=== PATIENT | male | born 1970 | race African-American/Black ===

== ENCOUNTER 2018-04-17 13:51 | Observation (INO) | payer SELFPAY ==
[2018-04-17] VITALS (7 sets, daily range): BP systolic 156–173; BP diastolic 88–102; PULSE 60–77; RESP 16–20; TEMP 97.9–98.4; O2SAT 94–97
[~2018-04-17] VITALS: Ht 167.6 cm; Wt 102.0 kg
[~2018-04-17 13:51] MED LIST: LORTA5 PO
[2018-04-17 14:29] LABS: AUTOMATED NEUTROPHIL # 2.6 TH/MM3 (1.8-7.7); BASOPHIL # 0.1 TH/MM3 (0-0.2); BASOPHIL % 1.1 % (0.0-2.0); EOSINOPHIL # 0.2 TH/MM3 (0-0.4); EOSINOPHIL % 3.5 % (0.0-4.0); HEMATOCRIT 44.9 % (39.0-51.0); HEMOGLOBIN 15.4 GM/DL (13.0-17.0); LYMPH % 44.4 % (9.0-44.0); LYMPHOCYTE # 2.7 TH/MM3 (1.0-4.8); MEAN CELL VOLUME 91.3 FL (80.0-100.0); MEAN CORPUSCULAR HEMOGLOBIN 31.4 PG (27.0-34.0); MEAN CORPUSCULAR HGB CONC 34.4 % (32.0-36.0); MEAN PLATELET VOLUME 7.7 FL (7.0-11.0); MONO % 8.9 % (0.0-8.0); MONOCYTE # 0.5 TH/MM3 (0-0.9); NEUT % 42.1 % (16.0-70.0); PLATELET COUNT 325 TH/MM3 (150-450); RED BLOOD COUNT 4.92 MIL/MM3 (4.50-5.90); RED CELL DISTRIBUTION WIDTH 12.4 % (11.6-17.2); WHITE BLOOD COUNT 6.1 TH/MM3 (4.0-11.0)
[2018-04-17] MEDS ORDERED: SODIUM CHLORIDE 0.9% FLUSH 10 ML FLUSH IVF PRN (14:30)
--- NOTE | 2018-04-17 14:39 | PD ---
HPI Chief Complaint: Hypertension Time Seen by Provider: 14:32 Travel History International Travel<30 days: No Contact w/Intl Traveler<30days: No Traveled to known affect area: No History of Present Illness HPI Patient presents to the emergency department complaint of high blood pressure. States that he does not take her blood pressure medicine has no PCP, but checked his blood pressure at home because he felt lightheaded. Denies chest pain, fever, chills, vision change, shortness of breath, nausea, vomiting, abdominal pain, hematuria, back pain, but reports intermittent frontal headache. PFSH Past Medical History Cancer: No Diminished Hearing: No Endocrine: No Gastrointestinal Disorders: Yes (umbilical hernia) Genitourinary: No Hypertension: Yes Immune Disorder: No Musculoskeletal: No Neurologic: No Psychiatric: No Reproductive: No Respiratory: No Immunizations Current: Yes Tetanus Vaccination: > 5 Years Influenza Vaccination: No Past Surgical History Surgical History: No Previous Surgery Social History Alcohol Use: Yes (4 pack a week) Tobacco Use: No Substance Use: No Allergies-Medications (Allergen,Severity, Reaction): Coded Allergies: No Known Allergies (Verified Adverse Reaction, Unknown, 04/17/18) Reported Meds & Prescriptions Reported Meds & Active Scripts Active No Active Prescriptions or Reported Medications Review of Systems Except as stated in HPI: all other systems reviewed are Neg Physical Exam Narrative GENERAL: No acute distress. SKIN: Focused skin assessment warm/dry. HEAD: Atraumatic. Normocephalic. EYES: Pupils equal and round. No scleral icterus. No injection or drainage. ENT: No nasal bleeding or discharge. Mucous membranes pink and moist. NECK: Trachea midline. No JVD. CARDIOVASCULAR: Regular rate and rhythm. No murmur appreciated. RESPIRATORY: No accessory muscle use. Clear to auscultation. Breath sounds equal bilaterally. GASTROINTESTINAL: Abdomen soft, non-tender, nondistended. Hepatic and splenic margins not palpable. MUSCULOSKELETAL: No obvious deformities. No clubbing. No cyanosis. No edema. NEUROLOGICAL: Awake and alert. No obvious cranial nerve deficits. Motor grossly within normal limits. Normal speech. PSYCHIATRIC: Appropriate mood and affect; insight and judgment normal. Data Data Last Documented VS Vital Signs Date Time Temp Pulse Resp B/P (MAP) Pulse Ox O2 Delivery O2 Flow Rate FiO2 04/17/18 15:13 67 18 156/99 (118) 97 Room Air 04/17/18 13:54 98.4 Orders Orders Electrocardiogram (04/17/18 14:18) Complete Blood Count With Diff (04/17/18 14:18) Comprehensive Metabolic Panel (04/17/18 14:18) Ckmb (Isoenzyme) Profile (04/17/18 14:18) Troponin I (04/17/18 14:18) Act Partial Throm Time (Ptt) (04/17/18 14:18) Prothrombin Time / Inr (Pt) (04/17/18 14:18) Urinalysis - C+S If Indicated (04/17/18 14:18) Chest, Single Ap (04/17/18 14:18) Ct Brain W/O Iv Contrast(Rout) (04/17/18 14:18) Ecg Monitoring (04/17/18:18) Iv Access Insert/Monitor (04/17/18 14:18) Oximetry (04/17/18 14:18) Sodium Chloride 0.9% Flush (Ns Flush) (04/17/18 14:30) CKMB (04/17/18 14:10) CKMB% (04/17/18 14:10) Aspirin (Aspirin) (04/17/18 15:30) Amlodipine (Norvasc) (04/17/18 15:45) Admit Order (Ed Use Only) (04/17/18 15:46) Labs Laboratory Tests Test 04/17/18 14:10 04/17/18 15:10 White Blood Count 6.1 TH/MM3 Red Blood Count 4.92 MIL/MM3 Hemoglobin 15.4 GM/DL Hematocrit 44.9 % Mean Corpuscular Volume 91.3 FL Mean Corpuscular Hemoglobin 31.4 PG Mean Corpuscular Hemoglobin Concent 34.4 % Red Cell Distribution Width 12.4 % Platelet Count 325 TH/MM3 Mean Platelet Volume 7.7 FL Neutrophils (%) (Auto) 42.1 % Lymphocytes (%) (Auto) 44.4 % Monocytes (%) (Auto) 8.9 % Eosinophils (%) (Auto) 3.5 % Basophils (%) (Auto) 1.1 % Neutrophils # (Auto) 2.6 TH/MM3 Lymphocytes # (Auto) 2.7 TH/MM3 Monocytes # (Auto) 0.5 TH/MM3 Eosinophils # (Auto) 0.2 TH/MM3 Basophils # (Auto) 0.1 TH/MM3 CBC Comment DIFF FINAL Differential Comment Prothrombin Time 10.5 SEC Prothromb Time International Ratio 1.0 RATIO Activated Partial Thromboplast Time 27.4 SEC Blood Urea Nitrogen 8 MG/DL Creatinine 0.93 MG/DL Random Glucose 93 MG/DL Total Protein 8.3 GM/DL Albumin 3.5 GM/DL Calcium Level 8.6 MG/DL Alkaline Phosphatase 91 U/L Aspartate Amino Transf (AST/SGOT) 22 U/L Alanine Aminotransferase (ALT/SGPT) 28 U/L Total Bilirubin 0.9 MG/DL Sodium Level 139 MEQ/L Potassium Level 4.0 MEQ/L Chloride Level 106 MEQ/L Carbon Dioxide Level 26.5 MEQ/L Anion Gap 7 MEQ/L Estimat Glomerular Filtration Rate 105 ML/MIN Total Creatine Kinase 311 U/L Creatine Kinase MB 3.7 NG/ML Creatine Kinase MB % 1.2 % Troponin I LESS THAN 0.02 NG/ML Urine Collection Type CLEAN CATCH Urine Color YELLOW Urine Turbidity CLEAR Urine pH 5.0 Urine Specific [place] 1.020 Urine Protein NEG mg/dL Urine Glucose (UA) NEG mg/dL Urine Ketones NEG mg/dL Urine Occult Blood NEG Urine Nitrite NEG Urine Bilirubin NEG Urine Urobilinogen 0.2 MG/DL Urine Leukocyte Esterase NEG Urine RBC 0-3 /hpf Urine Squamous Epithelial Cells 0-5 /hpf Microscopic Urinalysis Comment CULT NOT INDICATED MDM Medical Decision Making Medical Screen Exam Complete: Yes Emergency Medical Condition: Yes Interpretation(s) ECG: Sinus rhythm, rate 65, QTC 409, ST depression in leads III and aVF (no old for comparison), initial straightening of the ST segment in lead I, aVL, V2 through V4 Labs: Elevated CK,CKMB, Last Impressions Head CT 04/17/181417 Signed Impressions: CONCLUSION: 1. No acute intracranial abnormalities. Mucosal thickening in the ethmoid air cells and left frontal sinus. Chest X-Ray 04/17/181417 Signed Impressions: CONCLUSION: No acute findings. Differential Diagnosis Hypertensive emergency/urgency, CVA, ICH, HTN Narrative Course Patient presents emergency department complaining of hypertension. He was placed on a diesel maintenance technician, IV access obtained, and EKG/chest x-ray/head CT ordered. 1527: Patient without chest pain. Give aspirin 325 mg p.o. BP 156/99 1548: admitted, given amlodipine 10mg po per hsopitalsit. Physician Communication Physician Communication Dr Cruz: Admit for observation, amlodipine 10mg po, admit for serial ecg and enzymes Diagnosis Primary Impression: Hypertensive urgency Admitting Information Admitting Physician Requests: Observation Scripts No Active Prescriptions or Reported Meds Condition: Stable Tricia Fitch MD Apr 17, 2018 14:39
[2018-04-17 14:44] LABS: CHLORIDE 106 MEQ/L (98-107); SODIUM (NA) 139 MEQ/L (136-145)
[2018-04-17 14:47] LABS: CALCIUM 8.6 MG/DL (8.5-10.1)
[2018-04-17 14:48] LABS: ALBUMIN 3.5 GM/DL (3.4-5.0); BICARBONATE 26.5 MEQ/L (21.0-32.0); BLOOD UREA NITROGEN 8 MG/DL (7-18); GLUCOSE,RANDOM 93 MG/DL (74-106)
[2018-04-17 14:51] LABS: ALT (GPT) 28 U/L (12-78); AST (GOT) 22 U/L (15-37); CREATININE 0.93 MG/DL (0.60-1.30); GLOMERULAR FILTRATION RATE 105 ML/MIN (>89)
[2018-04-17 14:52] LABS: TOTAL BILIRUBIN ADULT 0.9 MG/DL (0.2-1.0)
[2018-04-17 14:53] LABS: TOTAL PROTEIN 8.3 GM/DL (6.4-8.2)
[2018-04-17 14:54] LABS: ALKALINE PHOSPHATASE 91 U/L (45-117)
--- NOTE | 2018-04-17 14:54 | RADRPT ---
EXAM DATE: 04/17/2018 2:44 PM EDT AGE/SEX: 47 years / Male INDICATIONS: Chest discomfort. Palpitations. CLINICAL DATA: This is the patient's initial encounter. Patient reports that signs and symptoms have been present for 1 day and indicates a pain score of 4/10. MEDICAL/SURGICAL HISTORY: None. None. COMPARISON: No prior exams available for comparison. FINDINGS: A single AP view of the chest demonstrates the lungs to be symmetrically aerated without evidence of mass, infiltrate or effusion. The cardiomediastinal contours are unremarkable. Osseous structures a re intact. CONCLUSION: No acute findings. Electronically signed by: Adebayo Weinstein MD 04/17/2018 2:53 PM EDT
[2018-04-17 14:56] LABS: TROPONIN I LESS THAN 0.02 NG/ML (0.02-0.05)
--- NOTE | 2018-04-17 14:59 | RADRPT ---
EXAM DATE: 04/17/2018 2:55 PM EDT AGE/SEX: 47 years / Male INDICATIONS: Elevated blood pressure and headache. CLINICAL DATA: This is the patient's initial encounter. Patient reports that signs and symptoms have been present for 2 days and indicates a pain score of 1/10. MEDICAL/SURGICAL HISTORY: Hypertension. None. RADIATION DOSE: 55.77 CTDI (mGy) COMPARISON: No prior exams available for comparison. TECHNIQUE: CT of the head without contrast. Using automated exposure control and adjustment of the mA and/or kV according to patient size, radiation dose was kept as low as reasonably achievable to ob tain optimal diagnostic quality images. FINDINGS: Cerebrum: The ventricles are normal for age. No evidence of midline shift, mass lesion, hemorrhage or acute infarction. No extraaxial fluid collections are seen. Posterior Fossa: The cerebellum and brainstem are intact. The 4th ventricle is midline. The cerebe llopontine angle is unremarkable. Extracranial: The visualized portion of the orbits is intact. Mucosal thickening in the ethmoids and left frontal sinus. Skull: The calvaria is intact. No evidence of skull fracture. CONCLUSION: 1. No acute intracranial abnormalities. Mucosal thickening in the ethmoid air cells and left frontal sinus. Electronically signed by: Adebayo Weinstein MD 04/17/2018 2:58 PM EDT
[2018-04-17 15:14] LABS: BILIRUBIN, URINE NEG (NEG); BLOOD, URINE NEG (NEG); GLUCOSE,URINE NEG (NEG); KETONE, URINE NEG (NEG); NITRITE,URINE NEG (NEG); URINE COLOR YELLOW (YELLW/STRAW); URINE LEUKOCYTE ESTERASE NEG (NEG)
[2018-04-17 15:20] LABS: PROTHROMBIN TIME - PATIENT 10.5 SEC (9.8-11.6)
[2018-04-17 15:22] LABS: RBC, URINE 0-3 /hpf (0-3); SQUAMOUS EPITHELIAL CELL URINE 0-5 /hpf (0-5)
[2018-04-17] MEDS ORDERED: ASPIRIN 325 MG TAB PO ONE (15:30)
[2018-04-17] MEDS ORDERED: METOCLOPRAMIDE HCL 10 MG/2 ML VIAL IV PUSH PRN (15:45)
[2018-04-17] MEDS ORDERED: SODIUM CHLORIDE 0.9% FLUSH 10 ML FLUSH IV FLUSH PRN (15:45)
[2018-04-17] MEDS ORDERED: SENNOSIDES 8.6 MG TAB PO PRN (15:45)
[2018-04-17] MEDS ORDERED: BISACODYL 10 MG SUPP RECTAL PRN (15:45)
[2018-04-17] MEDS ORDERED: MAGNESIUM HYDROXIDE SUSP 30 ML CUP PO PRN (15:45)
[2018-04-17] MEDS ORDERED: LACTULOSE SYRUP 20 GM/30 ML CUP PO PRN (15:45)
[2018-04-17] MEDS ORDERED: NALOXONE HCL 0.4 MG/ML AMP IV PUSH PRN (15:45)
--- NOTE | 2018-04-17 17:40 | HHI.HP ---
[facility] Service [facility] Primary Care Physician No Primary Care Physician Admission Diagnosis Hypertension urgency, headache, Diagnoses: (1) Hypertensive urgency Diagnosis: Principal (2) Lightheadedness Diagnosis: Principal (3) Nausea Diagnosis: Principal (4) Elevated CPK (5) Abnormal EKG Chief Complaint: Elevated blood pressure Travel History International Travel<30 Days: No Contact w/Intl Traveler <30 Da: No Traveled to Known Affected Are: No History of Present Illness Written by Shankar Santamaria, acting as scribe for Dr. Cruz on 04/17/18 at 17: 40. 47-year-old male with no significant medical history who presented to the hospital because of elevated blood pressure, lightheadedness, nausea, headache. Patient was in normal state of health until today when he was at [employer] when he started developing some lightheadedness and nausea. When the patient got home he took his blood pressure and noticed it to be 160/80. Because of his symptoms and his elevated blood pressure he came to the emergency department for evaluation. Patient had workup done in the emergency department and found to have mildly elevated CPK, CK-MB and abnormal EKG and was recommended by the ER physician that the patient be observed in the hospital for further recommendations and management. Patient denied any actual chest pain, shortness of breath, difficulty breathing, diaphoresis. Patient never had a cardiac workup before. Patient states that he does exercise on a regular basis. He does run. He usually plays basketball but has not done that in approximately 1 month. Denies any illicit drug use. Patient does have family history of heart disease. Review of Systems Constitutional: COMPLAINS OF: Dizziness Gastrointestinal: COMPLAINS OF: Nausea Neurologic: COMPLAINS OF: Headache Except as stated in HPI: all other systems reviewed are Neg Past Family Social History Past Medical History No chronic medical illnesses Past Surgical History No previous surgery Reported Medications Reported Meds & Active Scripts Active No Active Prescriptions or Reported Medications Allergies: Coded Allergies: No Known Allergies (Verified Allergy, Unknown, 04/17/18) Family History Reviewed and significant for uncle have an heart disease, myocardial infarction. Social History Patient denies any tobacco, alcohol or illicit drug Physical Exam Vital Signs Vital Signs Date Time Temp Pulse Resp B/P (MAP) Pulse Ox O2 Delivery O2 Flow Rate FiO2 04/17/18 17:05 63 16 159/98 (118) 95 04/17/18 16:20 60 18 165/102 (123) 97 Room Air 04/17/18 15:13 67 18 156/99 (118) 97 Room Air 04/17/18 14:07 77 16 173/96 (121) 95 Room Air 04/17/18 14:07 77 16 95 Room Air 04/17/18 14:07 95 Room Air 04/17/18 13:54 98.4 77 16 171/98 (122) 95 Physical Exam GENERAL: AA male, laying in bed. alert and orientated HEENT: Head is normocephalic. Facial features are symmetric. Pupils equal round reactive to light. Extraocular muscles are intact. Conjunctivae were clear. Pharynx without any erythema edema. Tongue is midline without deviation. Buccal mucosa is moist NECK: Supple without any masses. Trachea midline no deviation. No JVD CARDIAC: Regular rhythm, regular rate. S1/S2 are heard. No murmurs. LUNGS: Clear to auscultation bilaterally. No wheeze. No use of accessory muscles on inspiration or expiration. ABDOMEN: Soft, nontender. Nondistended. Bowel sounds heard in all 4 quadrants. Negative rebound, negative guarding EXTREMITIES: No edema, pulses are equal bilaterally. NEUROLOGY: Mood and affect appear appropriate. Cranial nerves II through XII grossly intact. Muscle strength 5/5 in upper and lower extremities bilaterally. Laboratory Laboratory Tests Test 04/17/18 14:10 04/17/18 15:10 White Blood Count 6.1 Red Blood Count 4.92 Hemoglobin 15.4 Hematocrit 44.9 Mean Corpuscular Volume 91.3 Mean Corpuscular Hemoglobin 31.4 Mean Corpuscular Hemoglobin Concent 34.4 Red Cell Distribution Width 12.4 Platelet Count 325 Mean Platelet Volume 7.7 Neutrophils (%) (Auto) 42.1 Lymphocytes (%) (Auto) 44.4 Monocytes (%) (Auto) 8.9 Eosinophils (%) (Auto) 3.5 Basophils (%) (Auto) 1.1 Neutrophils # (Auto) 2.6 Lymphocytes # (Auto) 2.7 Monocytes # (Auto) 0.5 Eosinophils # (Auto) 0.2 Basophils # (Auto) 0.1 CBC Comment DIFF FINAL Differential Comment Prothrombin Time 10.5 Prothromb Time International Ratio 1.0 Activated Partial Thromboplast Time 27.4 Blood Urea Nitrogen 8 Creatinine 0.93 Random Glucose 93 Total Protein 8.3 Albumin 3.5 Calcium Level 8.6 Alkaline Phosphatase 91 Aspartate Amino Transf (AST/SGOT) 22 Alanine Aminotransferase (ALT/SGPT) 28 Total Bilirubin 0.9 Sodium Level 139 Potassium Level 4.0 Chloride Level 106 Carbon Dioxide Level 26.5 Anion Gap 7 Estimat Glomerular Filtration Rate 105 Total Creatine Kinase 311 Creatine Kinase MB 3.7 Creatine Kinase MB % 1.2 Troponin I LESS THAN 0.02 Urine Collection Type CLEAN CATCH Urine Color YELLOW Urine Turbidity CLEAR Urine pH 5.0 Urine Specific [place] 1.020 Urine Protein NEG Urine Glucose (UA) NEG Urine Ketones NEG Urine Occult Blood NEG Urine Nitrite NEG Urine Bilirubin NEG Urine Urobilinogen 0.2 Urine Leukocyte Esterase NEG Urine RBC 0-3 Urine Squamous Epithelial Cells 0-5 Microscopic Urinalysis Comment CULT NOT INDICATED Result Diagram: 04/17/18 14104/17/181409 Imaging Last Impressions Head CT 04/17/181417 Signed Impressions: CONCLUSION: 1. No acute intracranial abnormalities. Mucosal thickening in the ethmoid air cells and left frontal sinus. Chest X-Ray 04/17/181417 Signed Impressions: CONCLUSION: No acute findings. Caprini VTE Risk Assessment Caprini VTE Risk Assessment: No/Low Risk (score <= 1) Caprini Risk Assessment Model Point Value = 1 Point Value = 2 Point Value = 3 Point Value = 5 Age 41-60 Minor surgery BMI > 25 kg/m2 Swollen legs Varicose veins or History of unexplained or recurrent spontaneous Oral contraceptives or hormone replacement Sepsis (< 1 month) Serious lung disease, including pneumonia (< 1 month) Abnormal pulmonary function Acute myocardial infarction Congestive heart failure (< 1 month) History of inflammatory bowel disease Medical patient at bed rest Age 61-74 Arthroscopic surgery Major open surgery (> 45 min) Laparoscopic surgery (> 45 min) Malignancy Confined to bed (> 72 hours) Immobilizing plaster cast Central venous access Age >= 75 History of VTE Family history of VTE Factor V Leiden Prothrombin [id number] Lupus anticoagulant Anticardiolipin antibodies Elevated serum homocysteine Heparin-induced thrombocytopenia Other congenital or acquired thrombophilia Stroke (< 1 month) Elective arthroplasty Hip, pelvis, or leg fracture Acute spinal cord injury (< 1 month) Prophylaxis Regimen Total Risk Factor Score Risk Level Prophylaxis Regimen 0-1 Low Early ambulation 2 Moderate Order ONE of the following: *Sequential Compression Device (SCD) *Heparin 5000 units SQ BID 3-4 Higher Order ONE of the following medications: *Heparin 5000 units SQ TID *Enoxaparin/Lovenox 40 mg SQ daily (WT < 150 kg, CrCl > 30 mL/min) *Enoxaparin/Lovenox 30 mg SQ daily (WT < 150 kg, CrCl > 10-29 mL/min) *Enoxaparin/Lovenox 30 mg SQ BID (WT < 150 kg, CrCl > 30 mL/min) AND/OR *Sequential Compression Device (SCD) 5 or more Highest Order ONE of the following medications: *Heparin 5000 units SQ TID (Preferred with Epidurals) *Enoxaparin/Lovenox 40 mg SQ daily (WT < 150 kg, CrCl > 30 mL/min) *Enoxaparin/Lovenox 30 mg SQ daily (WT < 150 kg, CrCl > 10-29 mL/min) *Enoxaparin/Lovenox 30 mg SQ BID (WT < 150 kg, CrCl > 30 mL/min) AND *Sequential Compression Device (SCD) Assessment and Plan Assessment and Plan Mildly Elevated CPK, CK-MB, abnormal EKG -Patient with increased risk factors include male, family history of heart disease, patient presented with with lightheadedness, nausea, headache and found to be hypertensive -We will continue to trend cardiac enzymes to rule out any acute coronary event -Original EKG showed inverted T waves in leads III and aVF, continue monitor serial EKGs -The patient ruled out for acute coronary event will anticipate performing exercise stress test in the morning to rule out any underlying ischemia -Continue aspirin, nitroglycerin as needed -Check lipid panel Hypertension urgency -Unknown etiology at this time. -CT of the brain did not indicate any acute abnormality -Started amlodipine 10 mg daily DVT prevention -Low risk, early ambulation Discharge disposition -We will need to consult case management prior to discharge in order to arrange for patient care assistance, follow-up with [facility] This note was transcribed by lauryn Santamaria. I, Dr. Yane Cruz personally performed the history, physical exam, and medical decision making; and confirmed the accuracy of the information in the transcribed note. Authenticated by Dr. Yane Cruz on 04/17/18 at 17:40. Code Status Full code Discussed Condition With ED physician and patient Shankar Santamaria Apr 17, 2018 17:40 Yane Cruz MD Apr 17, 2018 17:41
[2018-04-17] MEDS: SODIUM CHLOR 0.9% 1000 ML INJ 1,000 ML IV SCH (17:45)
[2018-04-17] MEDS ORDERED: NITROGLYCERIN 0.4 MG SL 25 TABS/BTL SL PRN (18:00)
[2018-04-17] MEDS: SODIUM CHLORIDE 0.9% FLUSH 10 ML FLUSH IV FLUSH SCH (21:00)
[2018-04-17] MEDS: DOCUSATE SODIUM 50 MG/SENNA 8.6 MG TAB PO SCH (21:00)
[2018-04-17 21:09] LABS: TROPONIN I LESS THAN 0.02 NG/ML (0.02-0.05)
[2018-04-18] VITALS: BP 177/84; PULSE 71; RESP 20; TEMP 97.6; O2SAT 96
[2018-04-18 02:07] LABS: TROPONIN I LESS THAN 0.02 NG/ML (0.02-0.05)
[2018-04-18] MEDS ORDERED: cloNIDine HCL 0.1 MG TAB PO PRN (02:45)
[2018-04-18 04:00] VITALS: BP 136/81; PULSE 71; RESP 20; TEMP 97.8; O2SAT 97
[2018-04-18] MEDS: SODIUM CHLOR 0.9% 1000 ML INJ 1,000 ML IV SCH ×2 (04:55→13:45)
[2018-04-18 08:00] VITALS: PULSE 60
[2018-04-18] MEDS: SODIUM CHLORIDE 0.9% FLUSH 10 ML FLUSH IV FLUSH SCH (08:40)
[2018-04-18] MEDS: DOCUSATE SODIUM 50 MG/SENNA 8.6 MG TAB PO SCH (08:40)
[2018-04-18 08:43] VITALS: BP 134/70; PULSE 73; RESP 16; TEMP 96.1; O2SAT 96
[2018-04-18] MEDS ORDERED: ASPIRIN EC 81 MG TABEC PO SCH (09:00)
[2018-04-18] MEDS ORDERED: METOPROLOL TARTRATE 25 MG TAB PO SCH (10:00)
[2018-04-18] MEDS ORDERED: INFLUENZA VIRUS VACCINE (QUADRIVALENT) 0.5 ML SYR IM ONE (10:00)
--- NOTE | 2018-04-18 10:03 | HHI.PR ---
Subjective Remarks Pt feels ok. Denies any CP/sob/lightheadedness or dizziness. He just had his stress test. Objective Vitals Vital Signs Date Time Temp Pulse Resp B/P (MAP) Pulse Ox O2 Delivery O2 Flow Rate FiO2 04/18/18 08:43 96.1 73 16 134/70 (91) 96 04/18/18 08:00 60 04/18/18 04:00 97.8 71 20 136/81 (99) 97 04/18/18 00:00 97.6 71 20 177/84 (115) 96 04/17/18 21:00 64 04/17/18 20:00 97.9 69 20 172/88 (116) 94 04/17/18 17:05 63 16 159/98 (118) 95 04/17/18 16:20 60 18 165/102 (123) 97 Room Air 04/17/18 15:13 67 18 156/99 (118) 97 Room Air 04/17/18 14:07 77 16 173/96 (121) 95 Room Air 04/17/18 14:07 77 16 95 Room Air 04/17/18 14:07 95 Room Air 04/17/18 13:54 98.4 77 16 171/98 (122) 95 I/O 04/17/18 04/17/18 04/17/18 04/18/18 04/18/18 04/18/18 07:00 15:00 23:00 07:00 15:00 23:00 Intake Total 1200 ml Output Total 400 ml 900 ml Balance -400 ml 300 ml Intake Oral 0 ml IV Total 1200 ml Output Urine Total 400 ml 900 ml # Bowel Movements 0 Result Diagram: 04/17/18 1410 04/17/18 141 Imaging Last Impressions Head CT 04/17/181417 Signed Impressions: CONCLUSION: 1. No acute intracranial abnormalities. Mucosal thickening in the ethmoid air cells and left frontal sinus. Chest X-Ray 04/17/181417 Signed Impressions: CONCLUSION: No acute findings. Objective Remarks GENERAL: AA male, laying in bed. alert and orientated CARDIAC: Regular rhythm, regular rate. S1/S2 are heard. No murmurs. LUNGS: Clear to auscultation bilaterally. No wheeze. ABDOMEN: Soft, nontender. Nondistended. EXTREMITIES: No edema, pulses are equal bilaterally. A/P Problem List: (1) Hypertensive urgency ICD Code: I16.0 - Hypertensive urgency Status: Acute (2) Lightheadedness ICD Code: R42 - Dizziness and giddiness (3) Nausea ICD Code: R11.0 - Nausea (4) Elevated CPK ICD Code: R74.8 - Abnormal levels of other serum enzymes (5) Abnormal EKG ICD Code: R94.31 - Abnormal electrocardiogram [ECG] [EKG] Assessment and Plan Mildly Elevated CPK, CK-MB, abnormal EKG -Patient with increased risk factors include male, family history of heart disease, patient presented with with lightheadedness, nausea, headache and found to be hypertensive -serial CE were neg. Stress test was abnormal. Discussed w cardiology and he recommended transferring pt for cardiac cath. morphine/nitro/BB/ASA/lipitor -Original EKG showed inverted T waves in leads III and aVF, continue monitor serial EKGs -lipid panel pending Hypertension urgency -Unknown etiology at this time. -CT of the brain did not indicate any acute abnormality -On amlodipine 10 mg daily DVT prevention -Low risk, early ambulation [facility]charge [facility] Yane Cruz MD Apr 18, 2018 10:03
[2018-04-18] MEDS ORDERED: PILL SPLITTER OTHER PRN (10:15)
[2018-04-18 10:39] LABS: CHOLESTEROL 243 MG/DL (120-200); TRIGLYCERIDES 134 MG/DL (42-150)
[2018-04-18 10:42] LABS: CHOLESTEROL/ HDL RATIO 6.12 RATIO; HDL CHOLESTEROL 39.7 MG/DL (40.0-60.0); LDL CHOLESTEROL 177 MG/DL (0-99)
[2018-04-18] MEDS ORDERED: NITROGLYCERIN 2% OINT 1 GM PACKET TOPICAL SCH (12:00)
[2018-04-18] MEDS ORDERED: REGADENOSON INJ 0.4 MG/5 ML SYR IV ONE (14:03)
[2018-04-18 14:14] VITALS: BP 131/77; PULSE 62; RESP 18; TEMP 96.6; O2SAT 96
--- NOTE | 2018-04-18 15:20 | RADRPT ---
EXAM DATE: 04/18/2018 3:13 PM EDT AGE/SEX: 47 years / Male INDICATIONS:Abnormal exercise treadmill test. . CLINICAL DATA: This is the patient's initial encounter. Patient reports that signs and symptoms have been present for 1 day and indicates a pain score of 0/10. MEDICAL/SURGICAL HISTORY: Hypertension. None. COMPARISON: No prior exams available for comparison. DOSE: 10 mCi Tc 99m Myoview at rest 30 mCi [id number] at stress 0.4 mg Lexiscan STRESS SYMPTOMS: Weird feeling. EJECTION FRACTION: 60 % TECHNIQUE: The patient underwent pharmacologic stress with infusion of prescribed dose. Continuous ECG tracing was monitored during stress. Gated SPECT imaging was performed after stress and conventi onal SPECT imaging was performed at rest. The examination was performed on a SPECT /CT scanner, both attenuation and non-corrected datasets were reviewed. FINDINGS: Distribution: The maximum perfused segment at stress is in the anterior lateral wall wall. Perfusion Study: The pattern of perfusion at stress is within normal limits. Gated Study: There are intact wall motion and wall thickening without hypokinetic or dyskinetic segm ents. The ejection fraction is calculated at 60%. RISK CATEGORY: Low (<1% Annual Motality Rate) CONCLUSION: 1. Negative for stress-induced ischemia Electronically signed by: Bang Roth MD 04/18/2018 3:18 PM EDT
--- NOTE | 2018-04-18 15:24 | HHI.DCPOC ---
Discharge Care Plan Diagnosis: (1) Hypertensive urgency (2) Elevated CPK (3) Abnormal EKG (4) Nausea (5) Lightheadedness Goals to Promote Your Health * To prevent worsening of your condition and complications * To maintain your health at the optimal level Directions to Meet Your Goals Take your medications as prescribed Follow your dietary instruction Follow activity as directed Keep your appointments as scheduled Take your immunizations and boosters as scheduled If your symptoms worsen call your PCP, if no PCP go to Urgent Care Center or Emergency Room Smoking is Dangerous to Your Health. Avoid second hand smoke Call the 24-hour hour crisis hotline for domestic abuse at Shankar Santamaria Apr 18, 2018 15:24
[2018-04-18] MEDS ORDERED: ATOR20TA15 PO (16:38)
[2018-04-18] MEDS ORDERED: AMLO10 PO (16:38)
[2018-04-18] MEDS ORDERED: SIMV20TA PO (17:00)
[2018-04-18] MEDS ORDERED: ATORVASTATIN 20 MG TAB PO SCH (21:00)
--- NOTE | 2018-04-19 18:36 | TR ---
Date Performed: 04/18/2018 Time Performed: 08:59:23 DOCTOR: Cheli Larson DRUG LIST: CLINICAL HISTORY: CHEST PAIN REASON FOR TEST: Chest pain REASON FOR ENDING: Completed Protocol Fatigue OBSERVATION: Arrhythmia: None Chest Pain: None CONCLUSION: Patient tolerated ISIDRA protocol with Total Exercise Time=6:48 Maximum CI=813 % Max HR Achieved=85.0% Maximum SV=516/95, Testing stopped secondary to goals acheived and physical fatigue . Patient reached target HR, During peak exercise, patient was asymptomatic, quick upsloping ST segme nts, No significant ST depressions, HR and BP appropriate response to exercise. Recovery perioodm HR and BP returned to baseline COMMENTS: No ischemia
--- NOTE | 2018-04-19 18:37 | EKG ---
Date Performed: 04/18/2018 Time Performed: 02:11:31 PTAGE: 47 years EKG: Sinus rhythm NONSPECIFIC ST & T-WAVE ABNORMALITY BORDERLINE ECG Since PREVIOUS TRACING , no significant change noted PREVIOUS TRACIN04/17/2018 20.38 DOCTOR: Cheli Larson Interpretating Date/Time 04/19/2018 18:35:32
--- NOTE | 2018-04-19 18:38 | EKG ---
Date Performed: 04/17/2018 Time Performed: 14:44:59 PTAGE: 47 years EKG: Sinus rhythm NONSPECIFIC T-WAVE ABNORMALITY BORDERLINE ECG NO PREVIOUS TRACING DOCTOR: Cheli Larson Interpretating Date/Time 04/19/2018 18:37:00
--- NOTE | 2018-04-19 18:38 | EKG ---
Date Performed: 04/17/2018 Time Performed: 20:38:01 PTAGE: 47 years EKG: Sinus rhythm NONSPECIFIC ST & T-WAVE ABNORMALITY BORDERLINE ECG Since PREVIOUS TRACING , no significant change noted PREVIOUS TRACIN04/17/2018 14.44 DOCTOR: Cheli Larson Interpretating Date/Time 04/19/2018 18:37:26
== END 2018-04-18 17:32 | disposition home or self-care (01) ==
LOC: PHED 13:51 → UNDOADMOB 15:48 → PHEDA 15:48 → PH3A 17:16 → UNDODISOB 04-18 17:32
PROVIDERS: ADMIT Hospitalist; ATTEND Hospitalist
DX: I16.0 Hypertensive urgency (principal); R74.8 Abnormal levels of other serum enzymes; R94.31 Abnormal electrocardiogram [ECG] [EKG]; R51 Headache; R42 Dizziness and giddiness; R11.0 Nausea; R07.89 Other chest pain; I10 Essential (primary) hypertension; Z82.49 Family history of ischemic heart disease and other diseases of the circulatory system
CPT/HCPCS: 70450; 71045; 78452; 80053; 80061; 81001; 82550; 82552; 84484; 85025; 85610; 85730; 93005; 93017; 99285; A9502; G0378; J2785; J7030